=== PATIENT | female | born 1970 | race Caucasian/White ===

== ENCOUNTER 2018-09-03 04:12 | Emergency (ER) | payer OTHER ==
[~2018-09-03] VITALS: Ht 165.1 cm; Wt 95.3 kg
[~2018-09-03 04:12] MED LIST: ALEVE220 MG PO; CLONAZEPAM 1 MG1 M1 PO; FLEXERIL PO; LASIX 20 MG TAB20 MG PO; LIORESAL 10 MG10 MG PO; MEDROLDOSEPACK PO; NORCO 5-325 TA1 EAC1 PO; NORCO 5-325 TA1 EACH PO; ROBAXIN 750 MG750 M1 PO; TRAMADOL 50 MG50 MG PO; ZESTORETIC 20-1 EACH PO
[2018-09-03 05:25] LABS: URINE BLOOD NEGATIVE (Negative); URINE CLARITY CLEAR; URINE COLOR YELLOW; URINE GLUCOSE-RANDOM NEGATIVE (Negative); URINE KETONES 1+ (Negative); URINE LEUKOCYTES-REFLEX 1+ (Negative); URINE NITRITE-REFLEX NEGATIVE (Negative); URINE PROTEIN TRACE (Negative); URINE SPECIFIC GRAVITY 1.025 (1.005-1.030)
[2018-09-03 05:28] LABS: URINE BILIRUBIN 1+ (Negative)
[2018-09-03 06:03] LABS: SQUAMOUS 4-10 Moderate /LPF (0-3)
[2018-09-03 06:04] LABS: CASTS None Seen /LPF (None Seen); MUCUS 0-3 Light strn/LPF (None Seen); URINE RBC None Seen /HPF (0-2); URINE WBC-REFLEX 6-15 Few /HPF (0-5)
[2018-09-03 06:05] LABS: CALCIUM OXALATE 0-3 Few /LPF (None Seen)
[2018-09-03 06:07] LABS: ICTOTEST (BILI CONFIRMATORY) Negative (Negative)
[2018-09-03] MEDS ORDERED: CIPROFLOXACIN500 M1 PO (06:07)
[2018-09-03 06:19] VITALS: BP 92/56
== END 2018-09-03 06:21 | disposition home or self-care (01) ==
LOC: M.ERS 04:12
PROVIDERS: Emergency Medicine
DX: F13.10 Sedative, hypnotic or anxiolytic abuse, uncomplicated (principal); N39.0 Urinary tract infection, site not specified; F17.200 Nicotine dependence, unspecified, uncomplicated; Z88.0 Allergy status to penicillin; Z88.2 Allergy status to sulfonamides; Z90.49 Acquired absence of other specified parts of digestive tract; Z98.890 Other specified postprocedural states